=== PATIENT | female | born 1945 | race Caucasian/White ===

== ENCOUNTER 2019-11-15 06:08 | Day surgery (SDC) | payer OTHER ==
[2019-11-15] VITALS (14 sets, daily range): BP systolic 104–140; BP diastolic 59–71
[~2019-11-15] VITALS: Ht 169.2 cm; Wt 76.4 kg
[~2019-11-15 06:08] MED LIST: ASCO500C18 PO; DIPH25CA85 PO; GRAP1CAP PO; LUTE20TA PO; MAGN250T10 PO; PYRI50CA PO; VITAMIN D PO
[2019-11-15] MEDS ORDERED: LACTATED RINGERS 1000ML 1,000 ML IV ONE (06:59)
[2019-11-15] MEDS ORDERED: MIDAZOLAM HCL 1 MG/ML 2ML VIAL ONE (07:08)
[2019-11-15] MEDS ORDERED: FENTANYL CITRATE PF 50 MCG/1 ML 2ML VIAL ONE (07:09)
[2019-11-15] MEDS ORDERED: PROPOFOL 10 MG/ML 20ML VIAL IV ONE (07:11)
[2019-11-15] MEDS: CEFAZOLIN SODIUM 1 GM VIAL ONE ×2 (07:14→08:00)
--- NOTE | 2019-11-15 07:26 | NUR ---
VALUABLES: UNABLE TO REMOVE A SET OF WHITE COLOR COATED RING WITH ONE WHITE COLOR COATED STONE TO LEFT RING FINGER AND TAPED.
[2019-11-15] MEDS ORDERED: LIDOCAINE HCL 1% MDV 50ML VIAL ONE (07:37)
[2019-11-15] MEDS ORDERED: LIDOCAINE HCL MPF 1% 5ML VIAL ONE (07:46)
[2019-11-15] MEDS ORDERED: ONDANSETRON HCL 4 MG/2 ML VIAL ONE (08:14)
--- NOTE | 2019-11-15 09:15 | NUR ---
PATIENT ARRIVED TO DAY PATIENT VIA STRETCHER BY OSVALDO CRESPO. PATIENT AAOX3, RESPIRATIONS UNLABORED, VITAL SIGNS STABLE. DENIES ANY PAIN AT THIS TIME. DRESSING TO RIGHT HAND DRY/INTACT (MARKELL WRAP AND GAUZE). CAPILLARY REFILL <3 SECS TO BILATERAL FINGERS. RADIAL PULSES STRONG.
--- NOTE | 2019-11-15 10:00 | NUR ---
DISCHARGE INSTRUCTIONS PROVIDED TO PATIENT AND SPOUSE. FOLLOW UP APPOINTMENT PROVIDED AND HANDOUTS ON INCISION CARE/DRESSING CARE EXPLAINED. INSTRUCTED PATIENT TO KEEP DRESSING IN PLACE AND NOT TO WET DRESSING. PROVIDED PATIENT WITH STAPLE REMOVAL KIT TO TAKE TO FOLLOW UP APPOINTMENT. PRESCRIPTION CALLED INTO PHARMACY FOR TORADOL BY NURSE.
--- NOTE | 2019-11-15 10:10 | NUR ---
PATIENT DISCHARGED FROM FACILITY VIA WHEELCHAIR AND ASSISTED INTO PRIVATE VEHICLE DRIVEN BY SPOUSE.
== END 2019-11-15 10:10 | disposition home or self-care (01) ==
LOC: DAH 06:08
PROVIDERS: ATTEND Neurological Surgery
DX: G56.01 Carpal tunnel syndrome, right upper limb (principal); M79.7 Fibromyalgia; M19.90 Unspecified osteoarthritis, unspecified site; Z88.5 Allergy status to narcotic agent
CPT/HCPCS: 64721; A4213; A4215 ×2; A4216; A4221; A4222; A4223 ×2; A4663; J0690; J2250; J2405; J2704; J3010; J3490 ×2; J7120